=== PATIENT | male | born 1955 | race Caucasian/White ===

== ENCOUNTER 2016-03-24 23:04 | Emergency (ER) | payer OTHER ==
[2016-03-25] MEDS ORDERED: FLUORESCEIN OPHTH 1 MG STRIP As Ordered ONE (00:22)
[2016-03-25] MEDS ORDERED: TETRACAINE 0.5% OPHTH SOLN 4ML As Ordered ONE (00:22)
[2016-03-25] MEDS ORDERED: ERYTHROMYCIN OPHTH OINT As Ordered ONE (00:49)
--- NOTE | 2016-03-25 00:57 | EDDOCDS ---
Physician Documentation [facility] Name: Chidi Delong Age: 61 yrs Sex: Male : 1955 Arrival Date: 03/24/2016 Time: 23:04 Bed I1 Private MD: Yenny Baugh E Disposition: 03/25/16 00:46 Discharged to Home/Self Care. Impression: Injury of conjunctiva and corneal abrasion without foreign body. - Condition is Stable. - Discharge Instructions: Corneal Abrasion. - Prescriptions for Erythromycin 5 mg/gram (0.5 %) Ophthalmic Ointment - apply 1 ribbon by OPHTHALMIC route every 8 hours; 1 tube. - Medication Reconciliation, Local Pharmacy Hours form. - Follow up: Oli Duncan; When: Tomorrow; Reason: Recheck today's complaints, Continuance of care. - Problem is new. - Symptoms have improved. - Notes: FOLLOW UP WITH DR DUNCAN TOMORROW, CALL TOMORROW AT 8AM FOR APPOINTMENT, USE MEDICATION INSTRUCTED, RETURN TO THE ER IF THE SYMPTOMS WORSEN OR BECOME CONCERNING Historical: - Allergies: No known drug Allergies; - Home Meds: 1. losartan-hydrochlorothiazide 50-12.5 mg oral tab 1 tab once daily 2. metoprolol tartrate 50 mg Oral tab 1 tab once daily 3. Zocor 20 mg Oral tab 1 tab once daily 4. allopurinol 100 mg Oral tab 2 tabs once daily 5. Prilosec 20 mg Oral cpDR 1 cap every other day - PMHx: Gout; Hypercholesterolemia; Hypertension; - PSHx: none; - Social history: Smoking status: Patient states was never smoker of tobacco. No barriers to communication noted, The patient speaks fluent Luxembourger, Speaks appropriately for age. - Family history: Not pertinent. - : The pt / caregiver states he / she is not on anticoagulants. Home medication list is obtained from the patient. - Exposure Risk Screening:: None identified. Vital Signs: 03/24 23:05 BP 151 / 87; Pulse 92; Resp 16; Temp 96.5(T); Pulse Ox 100% on R/A; Weight 80.29 kg / sew 177.01 lbs; Height 5 ft. 5 in. (165.10 cm); Pain 0/10; 23:05 Body Mass Index 29.45 (80.29 kg, 165.10 cm) sew MDM: 03/25 00:21 Tetracaine (PF) Drops 0.5 % 2 drps Ophthalmic once ordered. ck7 00:21 Flouroscein strips to bedside ordered. ck7 00:28 Financial registration complete. pm4 00:44 [facility] Payment Agreement was scanned into [employer] and attached to record. pm4 00:45 erythromycin Ointment 1 cm Ophthalmic once ordered. ck7 Administered Medications: 00:31 Drug: Tetracaine (PF) 2 drps [tetracaine HCl (PF) 0.5 % eye drops (2 drps)] {Note: by ld5 provider.} Route: Ophthalmic; Site: right eye; 00:55 Drug: erythromycin 1 cm [erythromycin 5 mg/gram (0.5 %) eye ointment (1 cm)] Route: ld5 Ophthalmic; Site: right eye; Signatures: Yenny Barriga RN RN ld5 Clemente Solano, NATALIEC RPA-Cck7 Inez MejiaRN RN nn1 Rc Lambert, Reg Reg pm4 The chart was reviewed and I authenticate all verbal orders and agree with the evaluation and treatment provided.Attachments: 00:44 [facility] Payment Agreement pm4 MTDD
--- NOTE | 2016-03-25 00:57 | EDDOCDS ---
Nurse's Notes [facility] Name: Chidi Delong Age: 61 yrs Sex: Male : 1955 Arrival Date: 03/24/2016 Time: 23:04 Bed I10 / 23 Private MD: Yenny Baugh E Diagnosis: Injury of conjunctiva and corneal abrasion without foreign body Presentation: 03/24 23:08 Presenting complaint: Patient states: he wears hard contact lenses in each eye, states nn1 he cannot get contact lens out of right eye. Mechanism of Injury: No Mechanism of Injury. The patient denies any loss of vision. Adult Sepsis Screening: The patient does not have new or worsening altered mentation. Patient's respiratory rate is less than 22. Systolic blood pressure is greater than 100. Patient has a qSOFA score of 0- Negative Sepsis Screen. Suicide/Homicide risk assessment- the patient denies having any suicidal and/or homicidal ideations and does not present with any other emotional, behavioral or mental health complaints. Status: Patient is not a immigration services officer or dependent. Transition of care: patient was not received from another setting of care. 23:08 Acuity: LUIS FELIPE Level 4 nn1 23:08 Method Of Arrival: Walkin/Carried/Asstd nn1 Triage Assessment: 23:11 General: Appears in no apparent distress, comfortable. Pain: Location: right eye Pain nn1 currently is 0 out of 10 on a pain scale. Pt Declines HIV testing. EENT: Eyes are tearing on right eye bilateral eyes reddened . Derm: Skin is pink, warm & dry. Historical: - Allergies: No known drug Allergies; - Home Meds: 1. losartan-hydrochlorothiazide 50-12.5 mg oral tab 1 tab once daily 2. metoprolol tartrate 50 mg Oral tab 1 tab once daily 3. Zocor 20 mg Oral tab 1 tab once daily 4. allopurinol 100 mg Oral tab 2 tabs once daily 5. Prilosec 20 mg Oral cpDR 1 cap every other day - PMHx: Gout; Hypercholesterolemia; Hypertension; - PSHx: none; - Social history: Smoking status: Patient states was never smoker of tobacco. No barriers to communication noted, The patient speaks fluent Honduran, Speaks appropriately for age. - Family history: Not pertinent. - : The pt / caregiver states he / she is not on anticoagulants. Home medication list is obtained from the patient. - Exposure Risk Screening:: None identified. Screenin/11 00:39 Screening information is obtained from the patient. Fall risk: No risks identified. kas2 Assistance ADL's: requires no assistance with activities of daily living. Abuse/DV Screen: The patient / caregiver reports he/she is: not in a situation that causes fear, pain or injury. Nutritional screening: No deficits noted. Advance Directives: Currently, there is no health care proxy. There is no active DNR order. There is no living will. There is no Power of Combatant Diver Qualified. home support is adequate. Assessment: 00:38 General: Appears in no apparent distress, uncomfortable, well nourished, well groomed, kas2 Behavior is appropriate for age, cooperative. Pain: Location: right eye Pain currently is 5 out of 10 on a pain scale. Neurological: Level of Consciousness is awake, alert, Oriented to person, place, time. EENT: Sclera/Cornea are reddened in right eye. Cardiovascular: Rhythm is regular. Respiratory: Airway is patent Respiratory effort is even, unlabored, Respiratory pattern is regular, symmetrical. Derm: Skin is intact, Skin is dry, Skin is pink, warm & dry. Skin temperature is warm. 00:55 General: Appears in no apparent distress, Behavior is cooperative. Pain: Location: ld5 right eye Quality of pain is described as burning. Neurological: Level of Consciousness is awake, alert. EENT: Sclera/Cornea are reddened in right eye. Vital Signs: 03/24 23:05 BP 151 / 87; Pulse 92; Resp 16; Temp 96.5(T); Pulse Ox 100% on R/A; Weight 80.29 kg; sew Height 5 ft. 5 in. (165.10 cm); Pain 0/10; 23:05 Body Mass Index 29.45 (80.29 kg, 165.10 cm) [facility] Vitals: 23:05 Log In Time: March 24, 2016 at 22:58. [facility] ED Course: 23:04 Patient visited by Shantelle Delcid. sew 23:04 Patient moved to Waiting sew 23:05 Yenny Baugh is Private Physician. sew 23:06 Patient visited by Shantelle Delcid. sew 23:06 Patient moved to Pre RCE sew 23:09 Triage Initiated nn1 23:44 Patient moved to Triage 1 [facility] 03/25 00:15 Clemente Solano RPA-C is PHCP. ck 00:15 Quincy Barriga DO is Attending Physician. ck 00:15 Patient moved to I10 23 nn1 00:16 Patient visited by Clemente Solano RPA-C. ck7 00:39 Patient visited by Ruth Hernandes RN. kas2 00:44 [facility] Payment Agreement was scanned into [employer] and attached to record. pm4 00:45 Oli Duncan is Referral Physician. ck7 00:55 The patient / caregiver is instructed regarding the plan of care and ED course. ld5 00:55 No IV's were initiated during this patient's visit. No procedures done that require ld5 assistance. 00:57 Patient visited by Yenny Barriga RN. ld5 Administered Medications: 00:31 Drug: Tetracaine (PF) 2 drps [tetracaine HCl (PF) 0.5 % eye drops (2 drps)] {Note: by ld5 provider.} Route: Ophthalmic; Site: right eye; 00:55 Drug: erythromycin 1 cm [erythromycin 5 mg/gram (0.5 %) eye ointment (1 cm)] Route: ld5 Ophthalmic; Site: right eye; Order Results: There are currently no results for this order. Outcome: 00:46 Discharge ordered by Provider. ck7 00:55 Discharge Assessment: Patient awake, alert and oriented x 3. No cognitive and/or ld5 functional deficits noted. Patient verbalized understanding of disposition instructions. patient administered narcotics - no. The following High Risk Discharge criteria are identified: None. Discharged to home ambulatory. Condition: stable. Discharge instructions given to patient, Instructed on discharge instructions, follow up and referral plans. medication usage, Demonstrated understanding of instructions, medications, Pt was receptive of discharge instructions/ teaching. Prescriptions given X 1. No special radiology studies were completed. Property :Personal belongings accompany Pt. 00:57 Patient left the ED. ld5 Signatures: Linsey Maravilla RN RN [facility] Yenny Barriga RN RN [facility] Clemente Solano RPA-C [place] [id number] Shantelle Delcid Nikkole, RN RN nn1 Ruth Hernandes RN RN kas2 Rc Lambert, Reg Reg pm4 MTDD
--- NOTE | 2016-03-27 01:57 | EDDOCDS ---
Nurse's Notes [facility] Name: Chidi Delong Age: 61 yrs Sex: Male : 1955 Arrival Date: 03/24/2016 Time: 23:04 Bed I10 / 23 Private MD: Yenny Baugh E Diagnosis: Injury of conjunctiva and corneal abrasion without foreign body Presentation: 03/24 23:08 Presenting complaint: Patient states: he wears hard contact lenses in each eye, states nn1 he cannot get contact lens out of right eye. Mechanism of Injury: No Mechanism of Injury. The patient denies any loss of vision. Adult Sepsis Screening: The patient does not have new or worsening altered mentation. Patient's respiratory rate is less than 22. Systolic blood pressure is greater than 100. Patient has a qSOFA score of 0- Negative Sepsis Screen. Suicide/Homicide risk assessment- the patient denies having any suicidal and/or homicidal ideations and does not present with any other emotional, behavioral or mental health complaints. Status: Patient is not a web services developer or dependent. Transition of care: patient was not received from another setting of care. 23:08 Acuity: LUIS FELIPE Level 4 nn1 23:08 Method Of Arrival: Walkin/Carried/Asstd nn1 Triage Assessment: 23:11 General: Appears in no apparent distress, comfortable. Pain: Location: right eye Pain nn1 currently is 0 out of 10 on a pain scale. Pt Declines HIV testing. EENT: Eyes are tearing on right eye bilateral eyes reddened . Derm: Skin is pink, warm & dry. Historical: - Allergies: No known drug Allergies; - Home Meds: 1. losartan-hydrochlorothiazide 50-12.5 mg oral tab 1 tab once daily 2. metoprolol tartrate 50 mg Oral tab 1 tab once daily 3. Zocor 20 mg Oral tab 1 tab once daily 4. allopurinol 100 mg Oral tab 2 tabs once daily 5. Prilosec 20 mg Oral cpDR 1 cap every other day - PMHx: Gout; Hypercholesterolemia; Hypertension; - PSHx: none; - Social history: Smoking status: Patient states was never smoker of tobacco. No barriers to communication noted, The patient speaks fluent Serbian, Speaks appropriately for age. - Family history: Not pertinent. - : The pt / caregiver states he / she is not on anticoagulants. Home medication list is obtained from the patient. - Exposure Risk Screening:: None identified. Screenin/11 00:39 Screening information is obtained from the patient. Fall risk: No risks identified. kas2 Assistance ADL's: requires no assistance with activities of daily living. Abuse/DV Screen: The patient / caregiver reports he/she is: not in a situation that causes fear, pain or injury. Nutritional screening: No deficits noted. Advance Directives: Currently, there is no health care proxy. There is no active DNR order. There is no living will. There is no Power of Pit Crew Support Worker. home support is adequate. Assessment: 00:38 General: Appears in no apparent distress, uncomfortable, well nourished, well groomed, kas2 Behavior is appropriate for age, cooperative. Pain: Location: right eye Pain currently is 5 out of 10 on a pain scale. Neurological: Level of Consciousness is awake, alert, Oriented to person, place, time. EENT: Sclera/Cornea are reddened in right eye. Cardiovascular: Rhythm is regular. Respiratory: Airway is patent Respiratory effort is even, unlabored, Respiratory pattern is regular, symmetrical. Derm: Skin is intact, Skin is dry, Skin is pink, warm & dry. Skin temperature is warm. 00:55 General: Appears in no apparent distress, Behavior is cooperative. Pain: Location: ld5 right eye Quality of pain is described as burning. Neurological: Level of Consciousness is awake, alert. EENT: Sclera/Cornea are reddened in right eye. Vital Signs: 03/24 23:05 BP 151 / 87; Pulse 92; Resp 16; Temp 96.5(T); Pulse Ox 100% on R/A; Weight 80.29 kg; sew Height 5 ft. 5 in. (165.10 cm); Pain 0/10; 23:05 Body Mass Index 29.45 (80.29 kg, 165.10 cm) [facility] Vitals: 23:05 Log In Time: March 24, 2016 at 22:58. [facility] ED Course: 23:04 Patient visited by Shantelle Dlecid. sew 23:04 Patient moved to Waiting sew 23:05 Yenny Baugh is Private Physician. sew 23:06 Patient visited by Shantelle Delcid. sew 23:06 Patient moved to Pre RCE sew 23:09 Triage Initiated nn1 23:44 Patient moved to Triage 1 [facility] 03/25 00:15 Clemente Solano RPA-C is PHCP. ck7 00:15 Quincy Barriga DO is Attending Physician. ck 00:15 Patient moved to I10 23 nn1 00:16 Patient visited by Clemente Solano RPA-C. ck7 00:39 Patient visited by Ruth Hernandes RN. kas2 00:44 [facility] Payment Agreement was scanned into [employer] and attached to record. pm4 00:45 Oli Duncan is Referral Physician. ck7 00:55 The patient / caregiver is instructed regarding the plan of care and ED course. ld5 00:55 No IV's were initiated during this patient's visit. No procedures done that require ld5 assistance. 00:57 Patient visited by Yenny Barriga RN. ld5 10:52 T-Sheet-- Draft Copy was scanned into [employer] and attached to record. gb Administered Medications: 00:31 Drug: Tetracaine (PF) 2 drps [tetracaine HCl (PF) 0.5 % eye drops (2 drps)] {Note: by ld5 provider.} Route: Ophthalmic; Site: right eye; 00:55 Drug: erythromycin 1 cm [erythromycin 5 mg/gram (0.5 %) eye ointment (1 cm)] Route: ld5 Ophthalmic; Site: right eye; Order Results: There are currently no results for this order. Outcome: 00:46 Discharge ordered by Provider. ck7 00:55 Discharge Assessment: Patient awake, alert and oriented x 3. No cognitive and/or ld5 functional deficits noted. Patient verbalized understanding of disposition instructions. patient administered narcotics - no. The following High Risk Discharge criteria are identified: None. Discharged to home ambulatory. Condition: stable. Discharge instructions given to patient, Instructed on discharge instructions, follow up and referral plans. medication usage, Demonstrated understanding of instructions, medications, Pt was receptive of discharge instructions/ teaching. Prescriptions given X 1. No special radiology studies were completed. Property :Personal belongings accompany Pt. 00:57 Patient left the ED. ld5 Signatures: Linsey Maravilla RN RN [facility] Bridget Newton, Reg Reg Yenny Barriga RN RN [facility] Clemente Solano RPA-C RPA-Cck7 Shantelle Delcid Nikkole,RN RN nn1 Ruth HernandesRN RN kas2 Rc Lambert, Reg Reg pm4 Chart Complete MTDD
--- NOTE | 2016-03-27 01:57 | EDDOCDS ---
Physician Documentation [facility] Name: Chidi Delong Age: 61 yrs Sex: Male : 1955 Arrival Date: 03/24/2016 Time: 23:04 Bed I1 Private MD: Yenny Baugh E Disposition: 03/25/16 00:46 Discharged to Home/Self Care. Impression: Injury of conjunctiva and corneal abrasion without foreign body. - Condition is Stable. - Discharge Instructions: Corneal Abrasion. - Prescriptions for Erythromycin 5 mg/gram (0.5 %) Ophthalmic Ointment - apply 1 ribbon by OPHTHALMIC route every 8 hours; 1 tube. - Medication Reconciliation, Local Pharmacy Hours form. - Follow up: Oli Duncan; When: Tomorrow; Reason: Recheck today's complaints, Continuance of care. - Problem is new. - Symptoms have improved. - Notes: FOLLOW UP WITH DR DUNCAN TOMORROW, CALL TOMORROW AT 8AM FOR APPOINTMENT, USE MEDICATION INSTRUCTED, RETURN TO THE ER IF THE SYMPTOMS WORSEN OR BECOME CONCERNING Historical: - Allergies: No known drug Allergies; - Home Meds: 1. losartan-hydrochlorothiazide 50-12.5 mg oral tab 1 tab once daily 2. metoprolol tartrate 50 mg Oral tab 1 tab once daily 3. Zocor 20 mg Oral tab 1 tab once daily 4. allopurinol 100 mg Oral tab 2 tabs once daily 5. Prilosec 20 mg Oral cpDR 1 cap every other day - PMHx: Gout; Hypercholesterolemia; Hypertension; - PSHx: none; - Social history: Smoking status: Patient states was never smoker of tobacco. No barriers to communication noted, The patient speaks fluent Faroese, Speaks appropriately for age. - Family history: Not pertinent. - : The pt / caregiver states he / she is not on anticoagulants. Home medication list is obtained from the patient. - Exposure Risk Screening:: None identified. Vital Signs: 03/24 23:05 BP 151 / 87; Pulse 92; Resp 16; Temp 96.5(T); Pulse Ox 100% on R/A; Weight 80.29 kg / sew 177.01 lbs; Height 5 ft. 5 in. (165.10 cm); Pain 0/10; 23:05 Body Mass Index 29.45 (80.29 kg, 165.10 cm) sew MDM: 03/25 00:21 Tetracaine (PF) Drops 0.5 % 2 drps Ophthalmic once ordered. ck7 00:21 Flouroscein strips to bedside ordered. ck7 00:28 Financial registration complete. pm4 00:44 [facility] Payment Agreement was scanned into [employer] and attached to record. pm4 00:45 erythromycin Ointment 1 cm Ophthalmic once ordered. ck7 10:52 T-Sheet-- Draft Copy was scanned into [employer] and attached to record. gb Administered Medications: 00:31 Drug: Tetracaine (PF) 2 drps [tetracaine HCl (PF) 0.5 % eye drops (2 drps)] {Note: by ld5 provider.} Route: Ophthalmic; Site: right eye; 00:55 Drug: erythromycin 1 cm [erythromycin 5 mg/gram (0.5 %) eye ointment (1 cm)] Route: ld5 Ophthalmic; Site: right eye; Signatures: Bridget Newton, Reg Reg gb Yenny Barriga RN RN ld5 Clemente Solano, RPA-C RPA-Cck7 Inez MejiaRN RN nn1 Rc Lambert, Reg Reg pm4 The chart was reviewed and I authenticate all verbal orders and agree with the evaluation and treatment provided.Attachments: 00:44 [facility] Payment Agreement pm4 10:52 T-Sheet-- Draft Copy gb Chart Complete MTDD
--- NOTE | 2016-03-27 01:57 | EDDOCDS ---
Physician Documentation [facility] Name: Chidi Delong Age: 61 yrs Sex: Male : 1955 Arrival Date: 03/24/2016 Time: 23:04 Bed I1 Private MD: Yenny Baugh E Disposition: 03/25/16 00:46 Discharged to Home/Self Care. Impression: Injury of conjunctiva and corneal abrasion without foreign body. - Condition is Stable. - Discharge Instructions: Corneal Abrasion. - Prescriptions for Erythromycin 5 mg/gram (0.5 %) Ophthalmic Ointment - apply 1 ribbon by OPHTHALMIC route every 8 hours; 1 tube. - Medication Reconciliation, Local Pharmacy Hours form. - Follow up: Oli Duncan; When: Tomorrow; Reason: Recheck today's complaints, Continuance of care. - Problem is new. - Symptoms have improved. - Notes: FOLLOW UP WITH DR DUNCAN TOMORROW, CALL TOMORROW AT 8AM FOR APPOINTMENT, USE MEDICATION INSTRUCTED, RETURN TO THE ER IF THE SYMPTOMS WORSEN OR BECOME CONCERNING Historical: - Allergies: No known drug Allergies; - Home Meds: 1. losartan-hydrochlorothiazide 50-12.5 mg oral tab 1 tab once daily 2. metoprolol tartrate 50 mg Oral tab 1 tab once daily 3. Zocor 20 mg Oral tab 1 tab once daily 4. allopurinol 100 mg Oral tab 2 tabs once daily 5. Prilosec 20 mg Oral cpDR 1 cap every other day - PMHx: Gout; Hypercholesterolemia; Hypertension; - PSHx: none; - Social history: Smoking status: Patient states was never smoker of tobacco. No barriers to communication noted, The patient speaks fluent Argentine, Speaks appropriately for age. - Family history: Not pertinent. - : The pt / caregiver states he / she is not on anticoagulants. Home medication list is obtained from the patient. - Exposure Risk Screening:: None identified. Vital Signs: 03/24 23:05 BP 151 / 87; Pulse 92; Resp 16; Temp 96.5(T); Pulse Ox 100% on R/A; Weight 80.29 kg / sew 177.01 lbs; Height 5 ft. 5 in. (165.10 cm); Pain 0/10; 23:05 Body Mass Index 29.45 (80.29 kg, 165.10 cm) sew MDM: 03/25 00:21 Tetracaine (PF) Drops 0.5 % 2 drps Ophthalmic once ordered. ck7 00:21 Flouroscein strips to bedside ordered. ck7 00:28 Financial registration complete. pm4 00:44 [facility] Payment Agreement was scanned into [employer] and attached to record. pm4 00:45 erythromycin Ointment 1 cm Ophthalmic once ordered. ck7 10:52 T-Sheet-- Draft Copy was scanned into [employer] and attached to record. gb Administered Medications: 00:31 Drug: Tetracaine (PF) 2 drps [tetracaine HCl (PF) 0.5 % eye drops (2 drps)] {Note: by ld5 provider.} Route: Ophthalmic; Site: right eye; 00:55 Drug: erythromycin 1 cm [erythromycin 5 mg/gram (0.5 %) eye ointment (1 cm)] Route: ld5 Ophthalmic; Site: right eye; Signatures: Bridget Newton, Reg Reg gb Yenny Barriga RN RN ld5 Clemente Solano, RPA-C RPA-Cck7 Inez MejiaRN RN nn1 Rc Lambert, Reg Reg pm4 The chart was reviewed and I authenticate all verbal orders and agree with the evaluation and treatment provided.Attachments: 00:44 [facility] Payment Agreement pm4 10:52 T-Sheet-- Draft Copy gb Chart Complete MTDD
== END 2016-03-25 00:57 | disposition home or self-care (01) ==
LOC: M ED 23:04
DX: S05.01XA Injury of conjunctiva and corneal abrasion without foreign body, right eye, initial encounter (principal); M10.9 Gout, unspecified; E78.00 Pure hypercholesterolemia, unspecified; I10 Essential (primary) hypertension; Z79.899 Other long term (current) drug therapy; Y92.89 Other specified places as the place of occurrence of the external cause; Y93.89 Activity, other specified; Y99.9 Unspecified external cause status; X58.XXXA Exposure to other specified factors, initial encounter

== ENCOUNTER 2017-01-23 08:24 | Day surgery (SDC) | payer OTHER ==
[~2017-01-23] VITALS: Ht 165.1 cm; Wt 83.9 kg
[~2017-01-23 08:24] MED LIST: ACETAMINOPHEN 325 MG TAB PO PRN; ALLO100T PO; ATOR1TAB21 PO; BSS with VANC/TOB/EPI for EYE CASES IR ONE; COQ-100C2 PO; CYCLOPENTOLATE 2% OPHTH SOLN 2ML BTL OD ONE; LIDOCAINE 3.5 % 1ML OPHTH TOPICAL GEL OU ONE; LORA10TA2 PO; LOSA100T8 PO; METO1TAB7 PO; MULT1TAB10 PO; OFLOXACIN 0.3 % (OCUFLOX) OPTH SOL 5ML OD ONE; PHENYLEPHRINE 2.5% OPHTH SOL 2ML OD ONE; PHENYLEPHRINE HCL 10 % OPHTH. SOL 5ML OD PRN; PROPARACAINE 0.5% OPHTH SOL 15ML OD PRN; TROPICAMIDE 1% OPHTH SOLN 2ML OD ONE; VITA200038 PO
[2017-01-23] MEDS ORDERED: MOXIFLOXACIN IN BSS 0.25MG/0.25ML INTRACAMERAL INJ (OR EYE ONLY)(J2280) As Ordered ONE (10:16)
[2017-01-23] MEDS ORDERED: LIDOCAINE 1% SDV 5 ML VIAL As Ordered ONE (10:16)
[2017-01-23] MEDS ORDERED: POVIDONE-IODINE 5% OPHTH PREP SOL 30ML As Ordered ONE (10:16)
[2017-01-23] MEDS ORDERED: TRIAMCINOLONE PRES FR 40 MG/ML 1ML(TRIESENCE)(OR EYE ONLY)(J3300 PER 1MG) As Ordered ONE (10:16)
[2017-01-23] MEDS ORDERED: HEALON DUET (HEALON 10MG/ML 0.55ML & HEALON ENDOCOAT 30MG/ML 0.85ML) As Ordered ONE (10:17)
[2017-01-23] MEDS ORDERED: MIDAZOLAM INJ 2 MG/2 ML VIAL (J2250) As Ordered ONE (11:20)
[2017-01-23] MEDS ORDERED: fentaNYL 100 MCG/2 ML INJECTION (J3010) As Ordered ONE (11:20)
[2017-01-23] MEDS ORDERED: AcetaZOLAMIDE 500 MG ER CAP PO ONE (12:15)
[2017-01-23] MEDS ORDERED: TRIMETHOBENZAMIDE 300 MG CAP PO PRN (12:15)
[2017-01-23 12:30] VITALS: BP 140/67
== END 2017-01-23 12:31 | disposition home or self-care (01) ==
LOC: M SDC 08:24
PROVIDERS: ATTEND Ophthalmology
DX: H26.9 Unspecified cataract (principal); I12.9 Hypertensive chronic kidney disease with stage 1 through stage 4 chronic kidney disease, or unspecified chronic kidney disease; E78.00 Pure hypercholesterolemia, unspecified; R06.83 Snoring; G47.33 Obstructive sleep apnea (adult) (pediatric); N18.3 Chronic kidney disease, stage 3 (moderate); E78.5 Hyperlipidemia, unspecified; Z79.899 Other long term (current) drug therapy
CPT/HCPCS: 66984; J2250; J2280; J3010; J3300

== ENCOUNTER → 2018-03-11 | Outpatient (REF) | payer OTHER ==
[~2018-03-11] MED LIST changes: -ACETAMINOPHEN 325 MG TAB PO PRN; -BSS with VANC/TOB/EPI for EYE CASES IR ONE; -CYCLOPENTOLATE 2% OPHTH SOLN 2ML BTL OD ONE; -LIDOCAINE 3.5 % 1ML OPHTH TOPICAL GEL OU ONE; +LORA-243 PO; -LORA10TA2 PO; -OFLOXACIN 0.3 % (OCUFLOX) OPTH SOL 5ML OD ONE; -PHENYLEPHRINE 2.5% OPHTH SOL 2ML OD ONE; -PHENYLEPHRINE HCL 10 % OPHTH. SOL 5ML OD PRN; -PROPARACAINE 0.5% OPHTH SOL 15ML OD PRN; -TROPICAMIDE 1% OPHTH SOLN 2ML OD ONE
[2018-03-11 19:34] LABS: BACTERIA, URINE AUTO 1+ (NEGATIVE); MUCUS, URINE SMALL (NEGATIVE); RBC, URINE AUTO 4 /HPF (0-3); SQUAMOUS EPITHELIAL CELL UR AU 0 /HPF (0-6); WBC, URINE AUTO 30 /HPF (0-3)
== END ==
LOC: M LAB REF 18:05
PROVIDERS: ATTEND Internal Medicine Nephrology
DX: N18.3 Chronic kidney disease, stage 3 (moderate) (principal)

== ENCOUNTER → 2020-04-08 | Outpatient (CLI) | payer MEDICARE, OTHER ==
--- NOTE | 2020-04-08 09:58 | REP ---
INDICATION: CHRONIC KIDNEY DISEASE, STAGE 3A. COMPARISON: None. TECHNIQUE: Urinary tract sonography. FINDINGS: Urinary bladder zepeda are mildly trabeculated. No mass lesion is seen.. Renal cortical echogenicity pattern is normal bilaterally and contours are smooth. There is no evidence of hydronephrosis, mass, or calculus in either kidney. The right kidney measures 10.7 x 5.4 x 5.0 cm. Left renal dimensions are 9.6 x 4.4 x 4.6 cm. There is a 1.6 x 1.2 x 1.0 cm cyst in the lower pole of the left kidney. IMPRESSION: Small cyst lower pole left kidney. Mildly trabeculated bladder zepeda. Otherwise normal urinary tract sonography.. <Electronically signed by Ryan Medina > 04/08/20 [id number]
== END ==
LOC: M RAD 09:08
PROVIDERS: ATTEND Internal Medicine Nephrology
DX: N18.31 Chronic kidney disease, stage 3a (principal); N28.1 Cyst of kidney, acquired

== ENCOUNTER → 2021-03-11 | Outpatient (CLI) | payer MEDICARE, OTHER ==
[~2021-03-11] MED LIST changes: +COQ-100C5 PO; +D31000TA2 PO; +METF500T13 PO; +VALS160T2 PO; +VITMTA PO
== END ==
LOC: M LABSMTC 09:14
PROVIDERS: ATTEND Anesthesiology
DX: Z01.812 Encounter for preprocedural laboratory examination (principal); Z20.822 Contact with and (suspected) exposure to COVID-19

== ENCOUNTER 2021-03-16 10:28 | Day surgery (SDC) | payer MEDICARE, OTHER ==
[~2021-03-16] VITALS: Ht 167.6 cm; Wt 83.5 kg
[~2021-03-16 10:28] MED LIST changes: +NS 1,000 ML IV ONE
[2021-03-16] MEDS ORDERED: propofoL 200 MG/20 ML VIAL As Ordered ONE (11:31)
[2021-03-16] MEDS ORDERED: LIDOCAINE 2% 100MG/5ML SDV (FOR ANES.) As Ordered ONE (11:31)
[2021-03-16 12:40] VITALS: BP 139/73
== END 2021-03-16 12:53 | disposition home or self-care (01) ==
LOC: M OPP 10:28
PROVIDERS: ATTEND Internal Medicine Gastroenterology
DX: Z12.11 Encounter for screening for malignant neoplasm of colon (principal); K57.30 Diverticulosis of large intestine without perforation or abscess without bleeding; K64.0 First degree hemorrhoids; Z79.84 Long term (current) use of oral hypoglycemic drugs; Z79.899 Other long term (current) drug therapy

== ENCOUNTER → 2022-02-15 | Outpatient (REF) | payer MEDICARE, OTHER ==
[~2022-02-15] MED LIST changes: -D31000TA2 PO; -NS 1,000 ML IV ONE; +VITA100093 PO
[2022-02-15 18:36] LABS: TOTAL PROTEIN,RANDOM URINE 12.1 MG/DL (0.0-14.0)
[2022-02-15 18:41] LABS: CREATININE,RANDOM URINE 125.5 MG/DL
== END ==
LOC: M LAB REF 16:45
PROVIDERS: ATTEND Internal Medicine Nephrology
DX: R80.9 Proteinuria, unspecified (principal)